=== PATIENT | male | born 1945 | race Caucasian/White ===

== ENCOUNTER 2016-08-18 20:13 | Observation (INO) | payer MEDICARE ==
[~2016-08-18] VITALS: Ht 185.4 cm; Wt 108.6 kg
--- NOTE | ~2016-08-18 | ECHO ---
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 Summary Normal LV/RV size and systolic function. The estimated left ventricular ejection fraction is 60%. Diastolic assessment reveals Grade I diastolic dysfunction. The left atrium is mildly dilated by LA volume index measurement. No significant valvular abnormalities. Procedure Type of Study TTE procedure:2D Echocardiogram. Procedure Date Date: 08/19/2016 Start: 01:11 PM Study Location: Inpatient Portable Indications:TIA. Additional Indications:Aphasia Appropriate Use Criteria: 9 Patient Status: Routine HR: 63 bpm BP: 138/79 mmHg M-Mode/2D Measurements LV Diastolic Dimension: 5.3 cm LV Systolic Dimension: 3.47 cm LV Septum Diastolic: 1.03 cm LV PW Diastolic: 1.04 cm AO Root Dimension: 3.2 cm Cardiac Output: 4.37 l/min AV Cusp Separation: 1.6 cm RV Diastolic Dimension: 3 cm LA volume: 76 ml LVOT: 2 cm RV Base: 3.63 cm LVOT VTI: 22.1 cm RV Mid: 2.67 cm LV Stroke volume: 69.39 ml TAPSE: 3.83 cm TDI-S': 12.2 cm/s Doppler Measurements AV Peak Velocity: 1.4 m/s MV Peak E-Wave: 0.6 m/s AV Peak Gradient: 7.84 mmHg MV Peak A-Wave: 0.9 m/s AV Mean Gradient: 4 mmHg MV E/A Ratio: 0.67 LVOT Peak Velocity: 1.13 m/s MV P1/2t: 77 msec TR Gradient:4.41 mmHg PV Peak Velocity: 0.88 m/s Estimated RAP:10 mmHg PV Peak Gradient: 3.1 mmHg Estimated RVSP: 14 mmHg Estimated PASP: 14.41 mmHg E' Septal Velocity: 0.06 m/s A' Septal Velocity: 0.08 m/s E' Lateral Velocity: 0.1 m/s A' Lateral Velocity: 0.13 m/s Findings Left Ventricle Diastolic assessment reveals Grade I diastolic dysfunction. Right Ventricle Normal right ventricle structure and function. Left Atrium The left atrium is mildly dilated by LA volume index measurement. Right Atrium Normal right atrial size. IVC imaging is consistent with normal RA pressures. Mitral Valve Trivial mitral regurgitation by color Doppler. Aortic Valve Mild AV sclerosis. Tricuspid Valve Trivial tricuspid regurgitation by color Doppler. Pulmonic Valve PV is grossly normal. Miscellaneous The aortic root and ascending aorta are not dilated. The maximum diameter measures 3.4 cm. Contractility Score LV regional wall motion:(0-Non visualized 1-Normal 2-Hypokinesis 3-Akinesis 4-Dyskinesis 5-Aneurysm) Signature dtt: SOSA TABARES dtd: 08/19/16 1311 Physician Self Edit
--- NOTE | ~2016-08-18 | ER ---
PATIENT'S NAME: JOCY POLANCO [facility] AGE: 70 Y [address] ROOM: [place] [address] LOCATION: [facility] ADMIT DATE: 08/18/2016 ER/Outpatient Report DISCHARGE DATE: FAMILY PHYSICIAN: MICHELLE PRESCOTT MD ATTENDING PHYSICIAN: CHARLI DURANT V Time of Arrival: 2013 hours. Time of Evaluation: 2020 hours. CHIEF COMPLAINT: Confusion. HISTORY OF PRESENT ILLNESS: This is a 70-year-old male, who presents to the ER with his , who states around 4 o'clock this afternoon, he felt like he was having an ocular headache. said he was out mowing the yard and then came in and told her this. She states he did lay down for a while, when he awoke he was still confused. The patient is having difficulty finding the words of what he wants to say. He states that he felt like maybe he had a headache earlier, but does not really complain of any pain now. The patient's said he was acting normally today. He had been eating and drinking fine. She does not think that he has had any diarrhea or troubles with constipation. He has had no nausea or vomiting. No recent illnesses. No fever or chills. The patient has had a similar episode of this in the past back in 2004; and then more recently, last year in November, he was evaluated and kept overnight for further evaluation. states they could not find anything wrong and told him that he had complex migraines. ALLERGIES: NO KNOWN ALLERGIES. MEDICATIONS: Please see medication list nurse's notes. PAST MEDICAL HISTORY: 1. Ocular migraine. 2. Feu-bnpxpxp-bkctxmnzu diabetes. 3. Hypertension. 4. Dyslipidemia. SOCIAL HISTORY: Denies smoking, drug, or alcohol use. REVIEW OF SYSTEMS: A 10-point review of systems was completed and was negative with the exception PATIENT'S NAME: JOCY POLANCO [facility] AGE: 70 Y [address] ROOM: [address] [address] LOCATION: [facility] ADMIT DATE: 08/18/2016 ER/Outpatient Report DISCHARGE DATE: FAMILY PHYSICIAN: MICHELLE PRESCOTT MD ATTENDING PHYSICIAN: CHARLI DURANT V of those discussed in the HPI. PHYSICAL EXAMINATION: VITAL SIGNS: Height 6 feet and 1 inch stated, weight 110.3 kg taken, blood pressure is 163/84, pulse 80, respirations 18, temperature 98.7 degrees tympanically, and saturations 94% on room air. HORTENCIA stroke scale, he scores 6. GENERAL: Alert, 70-year-old, in no acute distress. He feels frustrated in the fact that he cannot get the words out that he wants to say. HEENT: Head: Normocephalic and atraumatic. He does display moist mucous membranes. Ears: TMs display good light reflexes bilaterally. Nose: Turbinates pink with no drainage. Eyes: Pupils are equal and reactive to light. NECK: Supple. No lymphadenopathy. CARDIOVASCULAR: Heart is regular rate and rhythm. LUNGS: Clear to auscultation bilaterally. ABDOMEN: Soft. Nontender. He has good bowel sounds throughout. No masses are palpated. EXTREMITIES: Able to move all 4 extremities without difficulty. He has 5/5 muscle strength. He has good steady ambulation and does not need any assistance. NEURO: Cranial nerves II through XII grossly intact. He has equal reflexes bilaterally. He has equal cnc set up operator bilaterally. He has good sensation bilaterally in upper and lower extremities along with his face. With the eye, the patient does not have visual merino peripherally out of his right eye. SKIN: Warm, dry, and intact. LABORATORY DATA AND X-RAYS: CBC: White count is 7.6, hemoglobin is 13.8, and platelets 228. INR is 1.15. Troponin is less than 0.40. CMS is reviewed. EKG shows sinus rhythm. CT scan of the head with no acute findings, this was read by Radiology. IMPRESSION: 1. Altered mental status, confusion, concern for possible transient ischemic attack versus complex migraine. 2. History of ocular migraines. ASSESSMENT AND PLAN: I did discuss the patient's care with Dr. Rincon. Dr. Rincon also evaluated the patient. The patient did have an IV established. We did give him 4 aspirin upon his arrival that he chewed. TPA was not given due to the fact that the patient was out of the window and his symptoms started at 4 o'clock this afternoon. The patient's primary care physician is Dr. Prescott and I did contact him and he would like us to give this to the Hospitalist Service. We also spoke with Dr. Gonzalez, who is on-call for the Neurology, and he will also be evaluating the patient this evening as well. The patient and patient's PATIENT'S NAME: JOCY POLANCO [facility] AGE: 70 Y [address] ROOM: [address] [address] LOCATION: [facility] ADMIT DATE: 08/18/2016 ER/Outpatient Report DISCHARGE DATE: FAMILY PHYSICIAN: MICHELLE PRESCOTT MD ATTENDING PHYSICIAN: CHARLI DURANT V understand and agree with care. KEISHA GALAVIZ PA-C FOR MD LUPILLO LIZAMAJ/modl /[id number] d: 08/19/16 0145 t: 09/18/16 1101, OUTPATIENT REPORT
--- NOTE | ~2016-08-18 | CON ---
PATIENT'S NAME: JOCY POLANCO [facility] AGE: 70 Y [address] ROOM: [place] [address] LOCATION: [facility] ADMIT DATE: 08/18/2016 Consultation DISCHARGE DATE: 08/19/2016 FAMILY PHYSICIAN: Jordan Prescott MD ATTENDING PHYSICIAN: Mina Shirley V DATE OF CONSULTATION: 08/19/2016 REFERRING PHYSICIAN: Shahid Gonzalez MD TIME: 0930 hours. CHIEF COMPLAINT: Migraine. HISTORY OF PRESENT ILLNESS: The patient is a male who is 70 years old. He presents today with an episode not unlike an episode he last had last November. He was out mowing the yard, had some bright lights in his vision, and then lost the ability to speak. He stated his vocabulary was very limited at that time. He stated he was having difficulty thinking and was confused. His headache was described as all over, and he stated the pain was 3/10. He does state he has a history of an ocular migraine which happened last November. He had no change in taste, and he was not nauseous, nor did he vomit. He presented to our emergency room where he had a CT of his head which was unremarkable. His confusion was resolving, but not as quickly as it did in November. The hospitalist at that point ordered an MRI. Today, I am seeing him in his room. I interviewed him at length, and it seems to me like the patient is having to concentrate very hard on what I am saying. His states this is not usual for him. REVIEW OF SYSTEMS: All systems were reviewed and are negative except for the pertinent positives as mentioned in the HPI. PAST MEDICAL HISTORY: 1. Coronary artery disease, status post stenting about 5 years ago. 2. Lgo-tfbfnrj-mcvwyatqk diabetes. 3. Complex migraines. SOCIAL HISTORY: The patient denies any smoking or alcohol habits. FAMILY HISTORY: Negative for stroke. PATIENT'S NAME: JOCY POLANCO [facility] AGE: 70 Y [address] ROOM: [address] [address] LOCATION: [facility] ADMIT DATE: 08/18/2016 Consultation DISCHARGE DATE: 08/19/2016 FAMILY PHYSICIAN: Jordan Prescott MD ATTENDING PHYSICIAN: Mina Shirley V MEDICATIONS: Current medications are on the chart and reviewed by me. PHYSICAL EXAMINATION: VITAL SIGNS: Blood pressure 152/78, temperature 98.6, pulse is 78, respirations 18, and his oxygen saturations are 96% on room air. GENERAL: This is a well-developed, well-nourished, elderly male with appropriate hygiene. He is alert, oriented, and is able to converse during the interview. EYES: Pupils are equal, round, and reactive to light and accommodation. LYMPHATIC: No cervical lymphadenopathy. LUNGS: Clear to auscultation. NECK: No bruits auscultated. HEART: Regular. MUSCULOSKELETAL: Unremarkable. NEUROLOGIC. The NIH Stroke Scale is 0. His cranial nerves 2 through 12 are intact. He has good strength in upper and lower extremities. His gait is normal with swinging arms. He is able to follow 2-point instructions and is able to relay the history of the event. DIAGNOSTIC STUDIES: The MRI was completed, had no acute findings. There are some white matter changes reflective of chronic small-vessel ischemia and some chronic volume loss. The patient also had an echocardiogram with normal LV and RV size and systolic function. EF was estimated at 60%. Diastolic assessment reveals grade 1 diastolic dysfunction. The left atrium is mildly dilated. The right atrium is normal size. There is slight trivial mitral regurg per color Doppler. Mild AV sclerosis. Trivial tricuspid regurgitation. His carotid study as of November 2015 shows mild stenosis bilaterally. IMPRESSION AND PLAN: Migraine with aura, not intractable. Because the language deficit was with confusion, this points to a migraine rather than an ischemic event. In fact, his MRI was negative for any ischemic events. The patient did state that he had dark chocolate the day before this incident, which was also the same sequence of events that happened in November. The frequency of his migraines remains very rare, so prophylactic migraine medications are not warranted at this time. Please have the patient follow up in Neurology Clinic for monitoring the frequency of these headaches. Thank you for this very interesting consultation. Please do not hesitate to contact us if you have any questions. PATIENT'S NAME: JOCY POLANCO [facility] AGE: 70 Y [address] ROOM: [place] [address] LOCATION: [facility] ADMIT DATE: 08/18/2016 Consultation DISCHARGE DATE: 08/19/2016 FAMILY PHYSICIAN: Jordan Prescott MD ATTENDING PHYSICIAN: Mina Shirley V VILMA SO MD PP/modl /[id number] d: 08/22/16 1758 t: 08/23/16 1250, CONSULTATION REPORT
--- NOTE | ~2016-08-18 | HP ---
PATIENT'S NAME: JOCY POLANCO [facility] AGE: 70 Y [address] ROOM: [address] [address] LOCATION: [facility] ADMIT DATE: 08/18/2016 History & Physical DISCHARGE DATE: FAMILY PHYSICIAN: MICHELLE RAMIREZ MD ATTENDING PHYSICIAN: CHARLI DURANT V DATE OF SERVICE: CHIEF COMPLAINT: Confusion. HISTORY OF PRESENT ILLNESS: The patient is a 70-year-old male with a past medical history of coronary artery disease and ybp-gaerwxp-nbqbaiguv diabetes as well as migraines. The patient was hospitalized here in November of last year, where he presented with symptoms very similar to today. At that point, he had confusion and loss of vision in multiple noncontiguous visual merino. He was diagnosed with complex migraines. Today, the patient had a recurrence of a similar event. He was out mowing the lawn and then came into the house and told his that he was having an "ocular migraine." Unfortunately, neither one of them is a very good historian and the patient is quite confused at this point. He is not able to explain to me what exactly his ocular migraine entails. It does not sound like the patient has scintillation, aura, nausea, or vomiting. It sounds like he may just have difficulty with orientation and certain visual perception. In the ER, the patient had a workup, which included a CT of his head under Code Stroke protocol and CT was unremarkable. To this point, he is still quite confused as to time and place, but he is appropriate in answering other questions. REVIEW OF SYSTEMS: He denies any chest pain, shortness of breath, nausea, vomiting, palpitations, or diaphoresis. All systems have been reviewed and are negative aside from pertinent positives as mentioned above. PAST MEDICAL HISTORY: As provided by the patient and is: 1. Coronary artery disease, status post stenting, approximately 5 years ago. 2. Mff-tnfaxna-sbhbxbgrd diabetes. 3. Complex migraines, which the patient is not on any abortive or suppressive agents. SOCIAL HISTORY: PATIENT'S NAME: JOCY POLANCO [facility] AGE: 70 Y [address] ROOM: [address] [place] [id number] LOCATION: [facility] ADMIT DATE: 08/18/2016 History & Physical DISCHARGE DATE: FAMILY PHYSICIAN: MICHELLE RAMIREZ MD ATTENDING PHYSICIAN: CHARLI DRUANT V The patient denies any history of ongoing toxic habits. FAMILY HISTORY: Reviewed and is noncontributory due to known underlying etiology for his presentation. CURRENT MEDICATIONS: Metformin and additional medications are being compiled. PHYSICAL EXAMINATION: VITAL SIGNS: Blood pressure 163/84, temperature is 98.7, pulse is 80, respirations 18, and satting 94% on room air. GENERAL: Appears as a well-developed, well-nourished, elderly male, in no acute distress. He is alert and oriented just to his name, but he answers appropriately to a number of other more complex questions such as, his past medical history. His exam is otherwise nonfocal aside from his inability to follow certain commands in assessing his visual merino. EYES: Exam shows pupils are equal and reactive to light. LYMPHATICS: Exam shows no cervical lymphadenopathy. ENDOCRINE: Exam shows no thyromegaly. LUNGS: Clear to auscultation. HEART: Rate is regular. GI: Abdomen is soft, nontender, nondistended. : Reveals no costovertebral angle tenderness. VASCULAR: A 2+ pedal pulses. MUSCULOSKELETAL: Exam is unremarkable. LABORATORY DATA: Review of the studies from the ER shows a sodium of 130, unremarkable CBC, INR, and troponin. ASSESSMENT AND PLAN: This is a 70-year-old male who is being admitted for observation for questionable recurrence of complex partial migraine. The patient has been discussed with Dr. Gonzalez of Neurology who will be seeing the patient. For the time being, he will be admitted to the Neurotrauma Unit for observation. We will monitor his neurological status. We will follow recommendations from Neurology. 1. Nvl-nvgsxpw-pbemxtqfb diabetes. We will continue him on metformin. 2. Coronary artery disease. We will continue him on aspirin. Additional management will depend on clinical course. Time dedicated to this patient's encounter is 25 minutes. PATIENT'S NAME: JOCY POLANCO [facility] AGE: 70 Y [address] ROOM: [address] [place] [id number] LOCATION: [facility] ADMIT DATE: 08/18/2016 History & Physical DISCHARGE DATE: FAMILY PHYSICIAN: MICHELLE RAMIREZ MD ATTENDING PHYSICIAN: CHARLI DURANT V MD MURALI KIM/mohit /[id number] D: [id number] T: [id number] HISTORY & PHYSICAL
[~2016-08-18 20:13] MED LIST: ADVIL200 MG PO; ASPIRIN LO-DOSE81 MG PO; CLARITIN10 MG PO; GLUCOPHAGE500 MG PO; LOPRESSOR25 MG PO; NITROSTAT0.4 MG SL; PRINIVIL OR ZES10 MG PO; ZOCOR40 MG PO
[2016-08-18 20:53] LABS: BASOPHIL % 0.4 %; EOSINOPHIL # 0.1 K/uL (0.0-0.5); EOSINOPHIL % 1.6 %; HEMATOCRIT 39.3 % (37.0-53.0); HEMOGLOBIN 13.8 g/dL (11.0-16.0); IMMATURE GRANULOCYTE % 0.3 %; LYMPHOCYTE # 1.4 K/uL (0.8-4.0); LYMPHOCYTE % 17.8 %; MCH 31.7 pg (27.0-34.0); MCHC 35.1 gm/dL (32.0-36.5); MCV 90.3 fl (83.0-98.0); MONOCYTE # 0.7 K/uL (0.0-1.0); MONOCYTE % 9.4 %; MPV 9.7 fl (9.4-12.4); NEUTROPHIL # (ANC) 5.4 K/uL (1.4-9.0); NEUTROPHIL % 70.5 %; NRBC % 0 /100WBC (0-0.00); PLATELET COUNT 228 K/uL (150-450); RBC 4.35 M/uL (3.50-5.50); RDW-CV 11.8 % (11.9-14.6); WBC 7.6 K/uL (4.0-11.0)
[2016-08-18 21:03] LABS: INR - (THERAPEUTIC) 1.15 (0.92-1.07); PROTIME 12.1 SECONDS (9.8-11.4); PTT 29 SECONDS (25-32)
[2016-08-18 21:25] LABS: ALBUMIN 4.1 gm/dL (3.5-5.0); ANION GAP 14.2 (10.0-19.0); BLOOD UREA NITROGEN 18 mg/dL (6-24); CHLORIDE 95 mMol/L (96-110); CO2 25 mMol/L (22-32); CREATININE 0.7 mg/dL (0.6-1.3); ESTIMATED GFR (MDRD EQUATION) > 60; PHOSPHORUS 3.2 mg/dL (2.5-4.9); SODIUM 130 mMol/L (135-145)
[2016-08-18 21:26] LABS: POTASSIUM 4.2 mMol/L (3.7-5.1)
--- NOTE | 2016-08-19 01:06 | NUR ---
70YO Male with Hx of stent placement in 2008, according to has had no previous significant cardiovascular history including angina or SC. Hx of HTN, ocular migraines, DM II controlled via Metformin and CAD, has a history of a similar event in November of 2015 when he was having difficulty expressing self and forming words. stated he was feeling tired at home and layed down to take a nap, he later woke up and wanted to grill hamburgers, she said his speech had changed however and was unable to communicate thoroughly what he wanted to say. She took him to the ER and CT scan was performed, Troponin, BMP level drawn. He arrived to the floor via wheelchair at 2205, has difficulty with word finding and expressing self, has some difficulty following commands. SBP 160's, HR 60-70's, SR with 2+ edema to feet. L.S. clear throughout on RA. PIV R) hand SL'd. Pivot transfers well SBA with Gait belt. Has slight R) vision impairment and noted RLE drift upon NIHSS assessment.
--- NOTE | 2016-08-19 04:41 | NUR ---
Significant Event: Alert to self, able to state name at times. Aphasic. Follows commands with difficulty. NIHSS 4, RLE drift present with moderate aphasia. PERRLA 3mm brisk. Denies N/T or dullness in sensation. Occasional CHAN relieved by tylenol given last at 2318. Equal strong strength throughout all extremiteis. L.S. clear throughout, on RA. B.S. active, last BM 08/18. Urinates per SBA with gait belt to BR. PIV R) hand SL'd. ADA diet. Systolic 130-160's, HR 50-70's, 2+ pedal edema. Follow up: Re-orient as needed, NIHSS QShift, neuro checks. Lisa to evaluate in AM.
[2016-08-19 11:49] LABS: ALBUMIN 3.8 gm/dL (3.5-5.0); ANION GAP 15.1 (10.0-19.0); BLOOD UREA NITROGEN 13 mg/dL (6-24); CALCIUM 8.5 mg/dL (8.5-10.5); CHLORIDE 94 mMol/L (96-110); CO2 24 mMol/L (22-32); CREATININE 0.7 mg/dL (0.6-1.3); ESTIMATED GFR (MDRD EQUATION) > 60; MAGNESIUM 1.9 mg/dL (1.8-2.6); PHOSPHORUS 2.6 mg/dL (2.5-4.9); POTASSIUM 4.1 mMol/L (3.7-5.1); SODIUM 129 mMol/L (135-145)
--- NOTE | 2016-08-19 11:52 | NUR ---
Introduced self and role of care management to patient and his . They live [facility]. He states that he is able to do all his ADL's independently. His is available to assist as needed. His did have questions about the observation status. I explained the difference between observation and inpatient and how Medicare pays. She verbalized understanding. They did mention that he also have [facility] benefits. I called and notified Shirley at [facility] that patient was here. When I asked if [facility] he states "no I think I'm going home later today." They deny any needs at this time. Will continue to follow.
--- NOTE | 2016-08-19 12:59 | NUR ---
Significant Event: A/O x3. NIHSS 4 this AM for severe aphasia but aphasia has cleared up some. Word finding issues are resolving. Denies N/T. Follows commands. Denies N/T. PERRLA. VSS. Room air with sats in the upper 90s. LS clear throughout. BS active X4. No BM this shift. Voids per toilet. Accuchecks ACHS with SSI. Diabetic diet. Pills whole with water. No apparent skin issues. R) Hand PIV SLL. SBA using gaitnelt. Denies headache and/or pain. at bedside. Pleasant and cooperative with cares. Follow up:
== END 2016-08-19 16:35 | disposition disaster alternative care site (69) ==
LOC: GMED 20:13 → GNTU 21:24
PROVIDERS: Emergency Medicine; Physician Assistant; ADMIT Internal Medicine
DX: G93.40 Encephalopathy, unspecified (principal); R47.01 Aphasia; R41.82 Altered mental status, unspecified; G43.809 Other migraine, not intractable, without status migrainosus; I25.10 Atherosclerotic heart disease of native coronary artery without angina pectoris; E11.65 Type 2 diabetes mellitus with hyperglycemia; E78.5 Hyperlipidemia, unspecified
CPT/HCPCS: G0378; G8978; G8979; G8980; G8987; G8988; G8989